=== PATIENT | female | born 1985 | race Caucasian/White ===

== ENCOUNTER → 2024-11-07 | Outpatient (CLI) | payer OTHER ==
--- NOTE | 2024-11-07 17:26 | XR ---
EXAMINATION TYPE: XR knee complete LT DATE OF EXAM: 11/07/2024 5:17 PM COMPARISON: None. CLINICAL INDICATION: Female, 39 years old with history of S80.02XA CONTUSION OF LEFT KNEE, INITIAL EN COUNTER, TECHNIQUE: 3 view(s) obtained. FINDINGS: Large soft tissue injury appears to be along the anterior left proximal foreleg. No significant joint effusion is identified. No underlying fracture or injury is evident. Joint spaces appear preserved. No radiopaque foreign bodies evident. Follow up exams can be performed 7-10 days from acute trauma for continued pain. IMPRESSION: 1. Soft tissue injury anterior proximal tibia. 2. No acute osseous abnormalities left knee [facility], , 11/07/2024 5:23 PM
== END | disposition home or self-care (01) ==
LOC: RADXRMAIN 16:59
PROVIDERS: ATTEND Emergency Medicine
DX: S80.02XA Contusion of left knee, initial encounter (principal)

== ENCOUNTER → 2024-11-09 | Outpatient (CLI) | payer OTHER ==
--- NOTE | 2024-11-09 17:45 | XR ---
EXAMINATION TYPE: XR tibia fibula LT DATE OF EXAM: 11/09/2024 5:31 PM COMPARISON: None CLINICAL INDICATION: Female, 39 years old with history of S80.12XD; contusion TECHNIQUE: XR tibia fibula LT; examined in AP and lateral projections. FINDINGS: No evidence of any acute osseous pathology, joint dislocation, or soft tissue swelling is n oted. There is indentation of the patient's sock near the lower leg. IMPRESSION: No evidence of acute fracture. Pitting edema of the lower extremity correlate clinically. [facility], , 11/09/2024 5:43 PM
== END | disposition home or self-care (01) ==
LOC: RADXRMAIN 17:15
PROVIDERS: ATTEND Emergency Medicine
DX: S80.12XD Contusion of left lower leg, subsequent encounter (principal); R60.0 Localized edema

== ENCOUNTER → 2024-11-10 | Outpatient (CLI) | payer OTHER ==
--- NOTE | 2024-11-10 12:58 | US ---
EXAMINATION TYPE: US venous doppler duplex LE LT DATE OF EXAM: 11/10/2024 12:54 PM COMPARISON: NONE CLINICAL INDICATION: Female, 39 years old with history of S80.12XD LLE CONTUSION OF LEFT LOWER LEG; L eft leg injury with bruising, no known prior DVT or on blood thinners, Pain TECHNIQUE: The lower extremity deep venous system is examined utilizing real time linear array sonog sathya with graded compression, color doppler sonography, and spectral doppler. SIDE PERFORMED: Left FINDINGS: VESSELS IMAGED: Common Femoral Vein Deep Femoral Vein Greater Saphenous Vein * Femoral Vein Popliteal Vein Small Saphenous Vein * Proximal Calf Veins (* superficial vessels) Left Leg: Negative for DVT, Color Doppler imaging shows patency of the vessels. Spectral waveforms a re within normal limits. IMPRESSION: No ultrasound evidence for deep venous thrombosis. [facility], , 11/10/2024 12:56 PM
== END | disposition home or self-care (01) ==
LOC: RADUSWWP 12:29
PROVIDERS: ATTEND Emergency Medicine
DX: S80.12XD Contusion of left lower leg, subsequent encounter (principal); X58.XXXD Exposure to other specified factors, subsequent encounter

== ENCOUNTER → 2024-11-14 | Outpatient (CLI) | payer OTHER ==
--- NOTE | 2024-11-14 12:27 | XR ---
EXAMINATION TYPE: XR knee complete LT DATE OF EXAM: 11/14/2024 12:13 PM COMPARISON: 11/09/2024 CLINICAL INDICATION: Female, 39 years old with history of S80.02XD CONTUSION OF LEFT KNEE, SUBSEQUENT ENCOUN; PHH, pain TECHNIQUE: XR knee complete LT 3 views submitted. FINDINGS: No evidence of any acute osseous pathology, soft tissue swelling, or joint effusion is no asher. IMPRESSION: No acute osseous pathology. [facility], , 11/14/2024 12:24 PM
== END | disposition home or self-care (01) ==
LOC: RADXRMAIN 11:58
PROVIDERS: ATTEND Emergency Medicine
DX: S80.02XD Contusion of left knee, subsequent encounter (principal)

== ENCOUNTER → 2024-11-23 | Outpatient (CLI) | payer OTHER ==
--- NOTE | 2024-11-23 19:14 | MR ---
EXAMINATION TYPE: MR knee LT wo con DATE OF EXAM: 11/23/2024 5:11 PM COMPARISON: 11/14/2024. CLINICAL INDICATION: Female, 39 years old with history of S80.02XD CONTUSION OF LEFT KNEE; PHH, Left knee pain for 2 weeks due to injury at work TECHNIQUE: Multi planar, multi sequence imaging was performed of the knee including: Triplane proton density fat-saturated images and T1-weighted imaging. No Gadolinium was given. IV Contrast: mL (none if empty) FINDINGS: Medial meniscus: Intact Medial femorotibial cartilage: Intact Medial collateral ligament: Intact Lateral meniscus: Intact Lateral femorotibial cartilage: Intact Lateral collateral ligament complex: Intact Patellofemoral alignment: Normal Patellofemoral cartilage: Intact Extensor mechanism: Intact. Joint/bursal fluid: None. Muscles/tendons: The patellar tendon, quadriceps tendon, IT band, pes anserinus tendons, semimembrano trenton tendon, popliteus tendon, and biceps femoris tendon are all within normal limits. Bone marrow: Normal. Anterior cruciate ligament: Intact. Posterior cruciate ligament: Intact. Soft tissues: Prepatellar subcutaneous tissue streaky edema. No organizing fluid collections. IMPRESSION: Subcutaneous streaky edema in the prepatellar space, No abnormal bony edema.The ACL/PCL medial and la teral collateral ligaments are intact. The menisci are intact. [facility], , 11/23/2024 7:12 PM
== END | disposition home or self-care (01) ==
LOC: RADMRIMAIN 16:17
PROVIDERS: ATTEND Emergency Medicine
DX: S80.02XD Contusion of left knee, subsequent encounter (principal); S80.12XD Contusion of left lower leg, subsequent encounter; Y99.0 Civilian activity done for income or pay; R60.9 Edema, unspecified

== ENCOUNTER 2025-05-10 15:52 | Emergency (ER) | payer OTHER ==
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
[2025-05-10] MEDS: ACETAMINOPHEN TAB 500 MG TAB PO STA (17:21)
--- NOTE | 2025-05-10 18:01 | CT ---
EXAMINATION TYPE: CT brain cspine wo con DATE OF EXAM: 05/10/2025 5:50 PM COMPARISON: None. CLINICAL INDICATION: Female, 40 years old with history of Sudden onset headache, concussion 2 weeks a go; headache, recent concussion, pain TECHNIQUE: Brain: Multiple axial CT images of the brain were obtained without IV contrast. Cspine: Axial CT images from the skull base to the inferior aspect of T2 we obtained without intraven ous contrast. Coronal and sagittal reformatted images were also reviewed. . CT DLP: 1216.2 mGycm, Automated exposure control for dose reduction was used. FINDINGS: Brain: Extra-axial spaces: No abnormal extra-axial fluid collections. Ventricular system: Within normal limits Cerebral parenchyma: No acute intraparenchymal hemorrhage or mass effect. The coronado-white junction is well differentiated. Cerebellum: Unremarkable. Mass effect: No evidence of midline shift. Intracranial vasculature: unremarkable Soft tissues: Normal. Calvarium/osseous structures: No depressed skull fracture. Paranasal sinuses and mastoid air cells: Clear. Visualized orbits: Orbital contents are intact. Cervical spine: Fracture: None. Osseous structures: Unremarkable Vertebral alignment: Within normal limits. Spinal canal/Neural Foramina: No evidence of significant spinal canal narrowing. No evidence for sign ificant neural foraminal stenosis. Neck soft tissues: Prevertebral soft tissues are within normal limits. Other: The airway is patent. The lung apices are clear. IMPRESSION: 1. No acute intracranial process. 2. No evidence of cervical spine fracture. [facility], , 05/10/2025 5:58 PM
[2025-05-10 18:29] VITALS: BP 119/80; PULSE 90; RESP 20; TEMP 98.1
== END 2025-05-10 18:38 | disposition home or self-care (01) ==
LOC: EC 15:52
DX: G43.909 Migraine, unspecified, not intractable, without status migrainosus (principal); Z91.011 Allergy to milk products
CPT/HCPCS: 70450; 72125; 99284